=== PATIENT | female | born 1995 | race Caucasian/White ===

== ENCOUNTER 2020-09-01 18:39 | Emergency (ER) | payer OTHER ==
[~2020-09-01] VITALS: Ht 162.6 cm; Wt 98.4 kg
[2020-09-01 18:49] VITALS: BP 135/80
--- NOTE | 2020-09-01 19:01 | NUR ---
PT AMBULATED TO BATHROOM, STEADY GAIT.
--- NOTE | 2020-09-01 19:15 | NUR ---
REPORT GIVEN TO RAYMOND HATFIELD AND RAYMOND SOMERS. ALL CARE TRANSFERRED AT THIS TIME.
--- NOTE | 2020-09-01 19:25 | NUR ---
24 YO/F BIB PRO[employer] IN [place] ([facility]). PT REPORTS SHE HAD SI AND CUT HER L WRIST WITH A THUMB TAC AT 1632 TODAY. BLEEDING CONTROLLED. PT REPORTS 7/10 PAIN. IN ED, VSS. AOX4. PT CALM, NOT IN DISTRESS. (+)LACERATION TO RIGHT WRIST COVERED IN GAUZE, NO ACTIVE BLEEDING. ERMD MADE AWARE OF PT STATUS. PMH-ASTHMA, BIPOLAR, MILD INTELLECTUAL DISABILITY, SCHIZO, HTN RX- VIT D 3, LITHIUM, NYSTATIN, OLANZAPINE, TOPIRAMATE, VENTOLIN, HCTZ NKDA
--- NOTE | 2020-09-01 19:29 | NUR ---
DR. SAHU AT BEDSIDE FOR MSE
--- NOTE | 2020-09-01 19:53 | NUR ---
TELEPSYCH INITIATED PER DR. SAHU
--- NOTE | 2020-09-01 19:55 | NUR ---
KERRI (BEN) AND NERI COMPLETED AND GIVEN TO COURTNEY FROM LAB.
[2020-09-01] MEDS ORDERED: LIDOCAINE/EPI 1% 1:100000 20 ML VIAL INJ ONE (20:06)
[2020-09-01] MEDS ORDERED: LIDOCAINE MPF 1% 5 ML ONE (20:07)
[2020-09-01 20:08] LABS: BASOPHILS % (AUTO) 0.3 % (0.0-2.0); EOSINOPHILS # (AUTO) 0.2 K/uL (0-0.4); EOSINOPHILS % (AUTO) 1.8 % (0.0-4.0); HEMATOCRIT 39.3 % (36-48); HEMOGLOBIN 13.1 g/dL (12.0-16.0); LYMPHOCYTES # (AUTO) 2.5 K/uL (2.5-16.5); LYMPHOCYTES % (AUTO) 19.7 % (20.5-51.1); MEAN CORPUSCULAR HEMOGLOBIN 28 pg (27-31); MEAN CORPUSCULAR HGB CONC 33 g/dL (33-37); MEAN CORPUSCULAR VOLUME 85.6 fL (80-94); MONOCYTES # (AUTO) 0.6 K/uL (0.8-1.0); MONOCYTES % (AUTO) 4.5 % (1.7-9.3); NEUTROPHILS # (AUTO) 9.3 K/uL (1.8-7.7); NEUTROPHILS % (AUTO) 73.7 % (42.2-75.2); PLATELET COUNT (AUTO) 300 K/uL (140-450); RED BLOOD CELL COUNT(AUTO) 4.59 MIL/uL (4.20-5.40); RED CELL DISTRIBUTION WIDTH 13.2 % (11.6-13.7); WHITE BLOOD COUNT (AUTO) 12.6 K/uL (4.8-10.8)
[2020-09-01 20:10] LABS: APPEARANCE,URINE CLEAR (CLEAR); BILIRUBIN,URINE NEGATIVE (NEGATIVE); BLOOD, URINE NEGATIVE (NEGATIVE); COLOR,URINE YELLOW (YELLOW); LEUKOCYTE ESTERASE ,URINE 3+ (NEGATIVE); NITRITE, URINE NEGATIVE (NEGATIVE); UGLUCOSE NEGATIVE (NEGATIVE)
[2020-09-01 20:20] LABS: BARBITURATE, URINE NEGATIVE ng/ml (NEG <=200); BENZODIAZEPINE, URINE NEGATIVE ng/mL (NEG <=200); CANNABINOID, URINE NEGATIVE ng/mL (NEG <=50); COCAINE, URINE NEGATIVE ng/mL (NEG <=300); OPIATE, URINE NEGATIVE ng/mL (NEG <=2000); PHENCYCLIDINE SCREEN,URINE NEGATIVE ng/mL (NEG <=25)
[2020-09-01 20:24] LABS: RBC,URINE 0-5 /HPF (0-5); WBC,URINE 16-25 (MOD) /HPF (0-5)
[2020-09-01 20:26] LABS: ALBUMIN 3.4 g/dL (3.4-5.0); ANION GAP 15.9 (8-16); ASPARTATE AMINOTRANSFERASE 13 U/L (15-37); CARBON DIOXIDE 22.7 mmol/L (21-32); CHLORIDE 109 mmol/L (98-107); CREATININE 0.7 mg/dL (0.6-1.3); GFR ARICAN-AMERICAN 132 mL/min (>90); GLUCOSE 99 mg/dL (74-106); SODIUM SERUM 145 mmol/L (136-145); TOTAL BILIRUBIN 0.4 mg/dL (0.0-1.0); UREA NITROGEN, BLOOD 11 mg/dL (7-18)
[2020-09-01 20:30] LABS: POTASSIUM 2.6 mmol/L (3.5-5.1); SALICYLATE < 2.8 mg/dL (2.8-20.0)
[2020-09-01] MEDS ORDERED: POTASSIUM CHLORIDE 20% 40 MEQ/15 ML UDC PO ONE ×2 (20:40)
--- NOTE | 2020-09-01 21:00 | NUR ---
PT. RECEIVED SANDWICH FOR DINNER.
--- NOTE | 2020-09-01 21:34 | NUR ---
SPOKE WITH CHAZ TELLO, MAPPING TECHNICIAN OF [facility] AND WANTS UPDATES ON WHERE PT. IS PLACED.
--- NOTE | 2020-09-01 23:00 | NUR ---
PT. RESTING COMFORTABLY AT BEDSIDE, SHE VOICES NO COMPLAINTS AND IS COOPERATIVE WITH STAFF.
--- NOTE | 2020-09-01 23:28 | NUR ---
RETURN CALL FROM TELEPSYCH DOCTOR WHO SPOKE WITH PRIMARY RN Peter CONTRERAS
--- NOTE | 2020-09-01 23:31 | NUR ---
SPOKE TO ON-CALL PSYCH DOCTOR (DR. WALSH) FOR REPORT ON PT. HE STATES THAT HE WILL CALL BACK IN 2 MINS FOR TELEPSYCH CONSULT.
--- NOTE | 2020-09-01 23:34 | NUR ---
TELEPSYCH DOCTOR SPEAKING WITH PATIENT VIA REMOTE COMMUNICATION
--- NOTE | 2020-09-01 23:45 | NUR ---
TELE-PSYCH SPOKE WITH PT. IS NOT RECOMMENDING 5150 HOLD. SPOKE SAYING RECOMMEND PT RETURN TO ALF, AND FOLLOW UP OUT-PATIENT AND TO DISCUSS WITH ALF POSSIBLE WAYS FOR IMPROVENT WITH THE SITUATION / ARRANGEMENTS AT ALF
--- NOTE | 2020-09-02 01:42 | NUR ---
s/w Sofy Travis from [facility] regarding pt pickup. 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
[2020-09-02 02:12] VITALS: BP 135/80
--- NOTE | 2020-09-02 02:12 | NUR ---
Written and verbal after care instructions given and explained. Patient and caregiver verbalized understanding. Ambulatory with steady gait. All questions addressed prior to discharge. Advised to follow up with PMD.
== END 2020-09-02 02:12 | disposition home or self-care (01) ==
LOC: MED 18:39
DX: S51.812A Laceration without foreign body of left forearm, initial encounter (principal); Z20.822 Contact with and (suspected) exposure to COVID-19; R51.9 Headache, unspecified; R45.851 Suicidal ideations; X58.XXXA Exposure to other specified factors, initial encounter; Y93.89 Activity, other specified; Y92.89 Other specified places as the place of occurrence of the external cause; Y99.8 Other external cause status
CPT/HCPCS: 36415; 80053; 80305; 81001; 81025; 85025; 87086; 87426; 99283; G0480; G0482; J2001; U0003